=== PATIENT | female | born 1950 | race Caucasian/White ===

== ENCOUNTER 2017-06-17 13:00 | Emergency (ER) | payer MEDICARE, OTHER ==
[~2017-06-17] VITALS: Ht 162.6 cm; Wt 127.0 kg
[2017-06-17] MEDS ORDERED: ELIQUIS5 MG PO (13:34)
[2017-06-17] MEDS ORDERED: GLIPIZIDE10 MG PO (13:35)
[2017-06-17] MEDS ORDERED: SOTALOL80 MG PO (13:36)
[2017-06-17] MEDS ORDERED: HYDROCHLOROTHIA25 MG PO (13:38)
[2017-06-17] MEDS ORDERED: POTASSIUM CHLO20 ME1 PO (13:39)
[2017-06-17] MEDS ORDERED: TOPROL XL50 MG PO (13:40)
[2017-06-17] MEDS ORDERED: MELATONIN5 M2 PO (13:41)
--- NOTE | 2017-06-18 11:56 | EKG ---
[facility] [address] [facility] [place] [address] Signed Atrial fibrillation with rapid ventricular response with premature ventricular or aberrantly conducted complexes Nonspecific ST abnormality Abnormal ECG No previous ECGs available Confirmed by MICHAEL HORTA MD ([id number] on 06/18/2017 11:56:36 AM Electronically Signed By: MICHAEL HORTA MD 06/18/17 1156 PATIENT NAME: SHAKIRA HUFFMAN Electrocardiogram DATE OF : 46 PHYSICIAN: MICHAEL HORTA MD REPORT #: [id number] REPORT IS CONFIDENTIAL AND NOT TO BE RELEASED WITHOUT AUTHORIZATION
== END 2017-06-17 20:20 | disposition home or self-care (01) ==
LOC: ED 13:00
DX: I48.91 Unspecified atrial fibrillation (principal); E83.42 Hypomagnesemia; E87.6 Hypokalemia; E11.9 Type 2 diabetes mellitus without complications; I10 Essential (primary) hypertension; Z88.7 Allergy status to serum and vaccine; Z79.84 Long term (current) use of oral hypoglycemic drugs; Z79.899 Other long term (current) drug therapy; Z98.890 Other specified postprocedural states
CPT/HCPCS: 71020; 80053; 81001; 83735; 84484; 85025; 93005; 93010; 96365; 96375; 99284; J3475